=== PATIENT | female | born 1970 | race African-American/Black ===

== ENCOUNTER → 2018-09-06 | Outpatient (CLI) | payer MEDICAID ==
--- NOTE | 2018-09-06 11:46 | XR ---
Bilateral knees HISTORY: Pain in knees and heels 4 views of each knee are submitted on a total of 7 images No comparisons Marginal spurring is present in the medial compartments. Alignment, bone mineralization are maintaine d. No evident joint effusion on the right, there is suprapatellar increased density suggestive of eff usion on the left. Question some mild joint space loss medial compartment also joint space loss prese nt at the patellofemoral joint of the right knee greater than left. Marginal spurring present at the patellofemoral joints. IMPRESSION: Osteoarthritis.
--- NOTE | 2018-09-06 12:19 | XR ---
Bilateral calcaneus HISTORY: Heel pain 2 views of the left and 2 views of the right calcaneus submitted. There are plantar calcaneal spurs bilaterally. Bone mineralization is maintained. There is no fractur e or dislocation. Ossific density present at the level of the right ankle joint, consider synovial os teochondromatosis. IMPRESSION: Plantar calcaneal spurs. Additional findings above.
== END | disposition home or self-care (01) ==
LOC: RADXRMAIN 11:05
PROVIDERS: ATTEND Family Medicine
DX: M17.0 Bilateral primary osteoarthritis of knee (principal); M77.31 Calcaneal spur, right foot; M77.32 Calcaneal spur, left foot

== ENCOUNTER 2019-01-29 06:25 | Emergency (ER) | payer MEDICAID ==
--- NOTE | 2019-01-29 06:51 | ED ---
General Adult HPI - General Source: patient Mode of arrival: ambulatory Limitations: no limitations <RenateFrantzMiguel D - Last Filed: 01/29/19 07:20> <Nando Dorsey - Last Filed: 01/29/19 12:36> - General Chief complaint: ENT Stated complaint: Tongue Swelling Time Seen by Provider: 01/29/19 06:48 - History of Present Illness Initial comments: Dictation was produced using [employer] dictation software. please excuse any grammatical, word or spelling errors. Chief Complaint: 48-year-old female past medical history of hypertension presents with tongue swelling. History of Present Illness: Female. Patient presents with tongue swelling. She states her symptoms began at 1 AM. She came to the emergency department that she felt like the swelling was getting slightly worse. Patient takes amlodipine Benzapril, medication. She states she's been on this medication approximately 2-3 years. Patient denies any symptoms like this in the past. No family history of similar symptoms. Patient denies any allergen exposures. Patient denies any allergens. The ROS documented in this emergency department record has been reviewed and confirmed by me. Those systems with pertinent positive or negative responses have been documented in the HPI. All other systems are other negative and/or noncontributory. PHYSICAL EXAM: General Impression: Alert and oriented x3, not in acute distress HEENT: Normocephalic atraumatic, extra-ocular movements intact, pupils equal and reactive to light bilaterally, mucous membranes moist, tongue swelling, no respiratory distress, patient appears comfortable. No pain to the submandibular space Cardiovascular: Heart regular rate and rhythm, S1&S2 audible, no murmurs, rubs or gallops Chest: Lungs clear to auscultation bilaterally, no rhonchi, no wheeze, no rales Abdomen: Bowel sounds present, abdomen soft, non-tender, non-distended, no organomegaly Musculoskeletal: Pulses present and equal in all extremities, no peripheral edema Motor: Power 5/5 bilaterally, no focal deficits noted Neurological: CN II-XII grossly intact, no focal motor or sensory deficits noted Skin: Intact with no visualized rashes Psych: Normal affect and mood ED course: 48-year-old female presents with these induced angioedema. Patient clinically stable at this time. As upon arrival are within acceptable limits. Patient allegedly has been having symptoms for approximately 6 hours without any airway compromise. Patient appears medically stable at this time. She does have obvious swelling to the tongue. However she is in no acute distress. Given duration of symptoms believe patient is admitted in a cervical condition at this time. We will plan to monitor patient in emergency department for now. Patient signed out to Dr. Dorsey for follow-up of final disposition. (Miguel Dewitt) - Related Data Home Medications Medication Instructions Recorded Confirmed PARoxetine HCL [Paxil] 40 mg PO DAILY 01/29/19 01/29/19 amLODIPine BESYLATE/BENAZEPRIL 1 cap PO DAILY 01/29/19 01/29/19 [Lotrel 10-40 MG] Previous Rx's Medication Instructions Recorded Famotidine [Pepcid] 20 mg PO BID #10 tablet 01/29/19 predniSONE 20 mg PO BID #10 tab 01/29/19 Allergies Allergy/AdvReac Type Severity Reaction Status Date / Time No Known Allergies Allergy Verified 01/29/19 06:39 Review of Systems ROS Other: All systems not noted in ROS Statement are negative. <Miguel Dewitt - Last Filed: 01/29/19 07:20> ROS Other: All systems not noted in ROS Statement are negative. <Nando Dorsey - Last Filed: 01/29/19 12:36> ROS Statement: Those systems with pertinent positive or pertinent negative responses have been documented in the HPI. Past Medical History Past Medical History: Hypertension History of Any Multi-Drug Resistant Organisms: None Reported Past Surgical History: No Surgical Hx Reported Past Psychological History: Anxiety Smoking Status: Never smoker Past Alcohol Use History: None Reported Past Drug Use History: None Reported <Miguel Dewitt - Last Filed: 01/29/19 07:20> General Exam Limitations: no limitations <Miguel Dewitt - Last Filed: 01/29/19 07:20> Course <Nando Dorsey - Last Filed: 01/29/19 12:36> Vital Signs 01/29/19 01/29/19 01/29/19 06:36 06:45 07:23 Temperature 98.3 F Pulse Rate 71 Respiratory 20 15 18 Rate Blood Pressure 139/82 151/96 O2 Sat by Pulse 100 98 Oximetry 01/29/19 01/29/19 09:00 10:00 Temperature Pulse Rate 78 Respiratory 18 16 Rate Blood Pressure O2 Sat by Pulse 99 Oximetry - Reevaluation(s) Reevaluation #1: 01/29/19 08:29 Initial examination the patient upon my arrival reveals she feels improved the rash however she stated that she was having some pain in the back of her throat. She demonstrates no stridor JVD or bruits she still has the angioedema of the tongue. Medication will be ordered (Nando Dorsey) Medical Decision Making <Nando Dorsey - Last Filed: 01/29/19 12:36> - Medical Decision Making I did reevaluate the patient multiple occasions she is feeling improved at this time would like to go home and believe this is reasonable at this time. She will be placed on a short course of steroids histamine blockers she also was informed not to take anymore the Ge inhibitors. She is a follow-up with her doctor return when necessary (Nando Dorsey) Disposition <Miguel Dewitt - Last Filed: 01/29/19 07:20> Is patient prescribed a controlled substance at d/c from ED?: No <Nando Dorsey - Last Filed: 01/29/19 12:36> Clinical Impression: Angioedema due to angiotensin converting enzyme inhibitor (GE-I) Disposition: HOME SELF-CARE Condition: Good Instructions (If sedation given, give patient instructions): Angioedema (ED) Prescriptions: Famotidine [Pepcid] 20 mg PO BID #10 tablet predniSONE 20 mg PO BID #10 tab Referrals: Willian Tomlinson DO [Primary Care Provider] - 1-2 days
[2019-01-29] MEDS ORDERED: methylPREDNISolone SOD SUCCI 125 MG/2 ML VIAL IV STA (08:28)
[2019-01-29] MEDS ORDERED: FAMOTIDINE 20 MG/2 ML VIAL IV STA (08:28)
[2019-01-29] MEDS ORDERED: diphenhydrAMINE 50 MG/ML 1 ML VIAL IVP STA (08:28)
[2019-01-29 12:40] VITALS: BP 148/76; PULSE 79; RESP 18; TEMP 98.1
== END 2019-01-29 12:40 | disposition home or self-care (01) ==
LOC: EC 06:25
DX: T78.3XXA Angioneurotic edema, initial encounter (principal); I10 Essential (primary) hypertension; F41.9 Anxiety disorder, unspecified; Z79.899 Other long term (current) drug therapy
CPT/HCPCS: 99283; 96374; 96375 ×2; J1200; J2930

== ENCOUNTER 2020-10-05 13:57 | Emergency (ER) | payer MEDICAID ==
[2020-10-05 14:21] VITALS: BP 120/75; PULSE 94; RESP 16
[2020-10-05] MEDS ORDERED: ACETAMINOPHEN TAB 500 MG TAB PO STA (14:39)
--- NOTE | 2020-10-05 15:21 | ED ---
Fever HPI - General Chief Complaint: Fever Stated Complaint: Covid symptoms Time Seen by Provider: 10/05/20 14:37 Source: patient Mode of arrival: ambulatory Limitations: no limitations - History of Present Illness Initial Comments: 50-year-old female presenting to emergency Department with a chief complaint of a fever. Patient reports symptoms began 3 days ago after she was exposed to a covid positive patient. Patient also reports generalized fatigue and she has been taking [id number] analgesics with no significant improvement in symptoms. Although, she does report that the fever is well managed. She does report loss of taste but not smoke. Does report a nonproductive cough. She is not a smoker. She denies any chest pain or shortness of breath. Denies any nausea vomiting diarrhea or abdominal pain. Does report chills. Patient is only requesting Covid testing. - Related Data Home Medications Medication Instructions Recorded Confirmed PARoxetine HCL [Paxil] 40 mg PO DAILY 01/29/19 01/29/19 amLODIPine BESYLATE/BENAZEPRIL 1 cap PO DAILY 01/29/19 01/29/19 [Lotrel 10-40 MG] Previous Rx's Medication Instructions Recorded Famotidine [Pepcid] 20 mg PO BID #10 tablet 01/29/19 predniSONE [Deltasone] 20 mg PO BID #10 tab 01/29/19 Allergies Allergy/AdvReac Type Severity Reaction Status Date / Time No Known Allergies Allergy Verified 10/05/20 14:37 Review of Systems ROS Statement: Those systems with pertinent positive or pertinent negative responses have been documented in the HPI. ROS Other: All systems not noted in ROS Statement are negative. Past Medical History Past Medical History: Hypertension History of Any Multi-Drug Resistant Organisms: None Reported Past Surgical History: No Surgical Hx Reported Past Psychological History: Anxiety Past Alcohol Use History: None Reported Past Drug Use History: None Reported General Exam Limitations: no limitations General appearance: alert, in no apparent distress, obese Head exam: Present: atraumatic, normocephalic, normal inspection Eye exam: Present: normal appearance, PERRL, EOMI Pupils: Present: normal accommodation ENT exam: Present: normal exam, normal oropharynx, mucous membranes moist, TM's normal bilaterally, normal external ear exam Neck exam: Present: normal inspection, full ROM. Absent: tenderness Respiratory exam: Present: normal lung sounds bilaterally. Absent: respiratory distress, wheezes, rales, rhonchi, stridor, chest wall tenderness, accessory muscle use, decreased breath sounds, prolonged expiratory Cardiovascular Exam: Present: regular rate, normal rhythm, normal heart sounds GI/Abdominal exam: Present: soft. Absent: distended, tenderness, guarding Extremities exam: Present: normal inspection, full ROM, normal capillary refill, other (+2 ulnar and radial pulses bilateral.). Absent: tenderness, pedal edema, joint swelling, calf tenderness Back exam: Present: normal inspection, full ROM. Absent: tenderness, CVA tenderness (R), CVA tenderness (L) Neurological exam: Present: alert, oriented X3, normal gait Psychiatric exam: Present: normal affect, normal mood Skin exam: Present: warm, dry, intact, normal color Course Vital Signs 10/05/20 10/05/20 14:18 15:48 Temperature 100.6 F H 99.4 F Pulse Rate 94 Respiratory 16 Rate Blood Pressure 120/75 O2 Sat by Pulse 99 Oximetry Medical Decision Making - Medical Decision Making 50-year-old feel presenting to emergency Department with a chief complaint of fever. On physical examination, patient does not appear to be in any respiratory distress. She was febrile on arrival but otherwise stable vitals. Patient was given Tylenol in the ED. Covid test positive. Patient only came to the ED for Covid testing. Patient was offered imaging, she declined. Advised the patient to only take Tylenol as an antipyretic and self isolate for 2 weeks after the onset of symptoms. On reevaluation, her temperature had improved. Strict return parameters were thoroughly discussed with patient is understanding and agreeable. Case discussed with physician. - Lab Data Lab Results 10/05/20 Range/Units 14:50 Coronavirus (PCR) Detected A (Not Detectd) Disposition Clinical Impression: COVID-19, Fever Disposition: HOME SELF-CARE Condition: Stable Instructions (If sedation given, give patient instructions): Upper Respiratory Infection (DC) Additional Instructions: Self isolate until he received the results of the covid testing. Take Tylenol if he develop a fever. Is patient prescribed a controlled substance at d/c from ED?: No Referrals: Willian Tomlinson DO [Primary Care Provider] - 1-2 days Time of Disposition: 15:21
[2020-10-05 15:50] VITALS: TEMP 99.4
== END 2020-10-05 15:48 | disposition home or self-care (01) ==
LOC: EC 13:57
DX: U07.1 COVID-19 (principal); I10 Essential (primary) hypertension; F41.9 Anxiety disorder, unspecified; Z79.899 Other long term (current) drug therapy
CPT/HCPCS: 87635; 99283

== ENCOUNTER → 2021-06-25 | Outpatient (CLI) | payer MEDICAID ==
--- NOTE | 2021-06-25 15:31 | MR ---
EXAMINATION TYPE: MR knee LT wo con DATE OF EXAM: 06/25/2021 COMPARISON: Outside bilateral knee x-rays June 11, 2021 HISTORY: L knee outer pain and swelling for 3 years per patient TECHNIQUE: Multiplanar, multisequence imaging of the left knee is performed without IV contrast. FINDINGS: MEDIAL MENISCUS: Anterior horn is intact without tear. Posterior horn is truncated appearance with ob lique and irregular increased signal extends to inferior articular surface. LATERAL MENISCUS: Anterior and posterior horns are intact without tear. CRUCIATE LIGAMENTS: The anterior and posterior cruciate ligaments are intact and unremarkable. COLLATERAL LIGAMENTS: The medial collateral ligament and lateral collateral ligament complex are inta ct and unremarkable. EXTENSOR MECHANISM: Visualized quadriceps and patellar tendons are intact. EFFUSION: Small suprapatellar joint effusion. POPLITEAL CYST: No popliteal/hopper cyst. TRICOMPARTMENT SPACES: Moderate patellofemoral compartment narrowing with mild to moderate spurring. Mild narrowing and spurring medial and lateral tibiofemoral compartments. CARTILAGE: Significant chondromalacia patella with areas of full-thickness cartilaginous loss identif ied. BONE MARROW SIGNAL: There is some heterogeneous increased T2 signal throughout the posterior and deep er aspects of the upper patella. OTHER: No additional significant abnormality is appreciated. IMPRESSION: 1. Full-thickness tear posterior horn of medial meniscus. 2. Tricompartment degenerative changes with moderate to borderline severe patellofemoral joint arthro adriano noted as detailed above. 3. Small suprapatellar joint effusion.
== END | disposition home or self-care (01) ==
LOC: RADMRIMAIN 12:58
PROVIDERS: ATTEND Orthopaedic Surgery
DX: M23.322 Other meniscus derangements, posterior horn of medial meniscus, left knee (principal); M17.12 Unilateral primary osteoarthritis, left knee

== ENCOUNTER → 2021-07-24 | Outpatient (CLI) | payer MEDICAID ==
[2021-07-24 15:09] LABS: Basophils # (A) 0.1 k/uL (0-0.2); Basophils % (A) 1 %; Eosinophils # (A) 0.3 k/uL (0-0.7); Eosinophils % (A) 4 %; HCT 37.1 % (34.0-46.0); HGB 12.4 gm/dL (11.4-16.0); Lymphocytes # (A) 2.4 k/uL (1.0-4.8); Lymphocytes % (A) 31 %; MCH 30.8 pg (25.0-35.0); MCHC 33.4 g/dL (31.0-37.0); MCV 92.1 fL (80.0-100.0); Mean Platelet Volume 7.2; Monocytes # (A) 0.4 k/uL (0-1.0); Monocytes % (A) 5 %; Neutrophils # (A) 4.4 k/uL (1.3-7.7); Neutrophils % (A) 57 %; Platelet Count 273 k/uL (150-450); RBC 4.03 m/uL (3.80-5.40); RDW 13.6 % (11.5-15.5); WBC 7.6 k/uL (3.8-10.6)
[2021-07-24 15:12] LABS: Potassium 3.5 mmol/L (3.5-5.1)
== END | disposition home or self-care (01) ==
LOC: LABPAT 14:17
PROVIDERS: ATTEND Orthopaedic Surgery
DX: Z01.812 Encounter for preprocedural laboratory examination (principal); M23.92 Unspecified internal derangement of left knee
CPT/HCPCS: 80051; 85025

== ENCOUNTER 2021-08-08 09:51 | Day surgery (SDC) | payer MEDICAID ==
[2021-08-05 17:27] VITALS: BMI 39.1
--- NOTE | 2021-08-07 19:28 | HP ---
HISTORY AND PHYSICAL REASON FOR ADMISSION: Surgery scheduled for 08/08/2021 HISTORY OF PRESENT ILLNESS: Lalita Hurst is a 51-year-old patient seen with progressive left knee pain. We discussed options. She elected to proceed with arthroscopy. Consent was obtained. PAST MEDICAL HISTORY: Hypertension. Anxiety. PAST SURGICAL HISTORY: Noncontributory. MEDICATIONS: Paxil, amlodipine, furosemide. ALLERGIES: None. SOCIAL HISTORY: She denies tobacco use. PHYSICAL EVALUATION OF THE LEFT KNEE: Range of motion is -2/3-115. Mild effusion. Tenderness medial joint line. Positive medial Madalyn's. Positive lateral Madalyn's. Patellar crepitus with range of motion. Ligaments stable. Hip rotation without pain. Distal neurovascular exam intact. RADIOGRAPHS: Left knee radiographs revealed osteoarthritic changes. An MRI of the left knee revealed medial meniscal tear and osteoarthritic changes. IMPRESSION: 1. Internal derangement of left knee with medial meniscal tear. 2. Hypertension. PLAN: Left knee arthroscopy with partial meniscectomy and debridement. Surgery 08/08/2021. MMODL / IJN: [id number] /
[~2021-08-08 09:51] MED LIST: DEXAMETHASONE SOD PHOSPHATE 4 MG/ML 1 ML VIAL IV ONE; LACTATED RINGERS 1,000 ML IV SCH; ONDANSETRON 4 MG/2 ML VIAL IVP ONE
[2021-08-08] MEDS ORDERED: LIDOCAINE 1% INJ 10MG/ML (20 ML MDV) ONE (12:15)
[2021-08-08] MEDS ORDERED: fentaNYL (PF) 50 MCG/ML 2 ML AMP ONE (12:15)
[2021-08-08] MEDS ORDERED: PROPOFOL 10 MG/ML 20 ML VIAL IV ONE (12:15)
[2021-08-08] MEDS ORDERED: KETOROLAC 15 MG/ML 1 ML VIAL ONE (12:15)
[2021-08-08] MEDS ORDERED: MIDAZOLAM 2 MG/2 ML VIAL ONE (12:15)
[2021-08-08] MEDS ORDERED: BUPIVACAINE (PF) 0.25% 30 ML VIAL INTRAARTIC ONE (12:43)
--- NOTE | 2021-08-08 12:58 | P.OP ---
Date of Procedure: 08/08/21 Preoperative Diagnosis: Internal derangement left knee Postoperative Diagnosis: 1. Tear medial meniscus left knee 2. Reactive synovitis medial, lateral and suprapatellar compartments left knee Procedure(s) Performed: 1. Arthroscopic partial medial meniscectomy left knee 2. Arthroscopic partial synovectomy medial, lateral and suprapatellar compartments left knee Anesthesia: DIPESH, local Surgeon: Jose Castillo Estimated Blood Loss (ml): 7 Pathology: none sent Condition: stable Disposition: PACU Indications for Procedure: 51-year-old patient seen with progressive left knee pain. After treatment options were discussed, she elected to proceed with arthroscopy. Operative Findings: see description of procedure Description of Procedure: Patient was taken to the operative suite. Patient underwent a general anesthet ic by the department of anesthesia. Patient was given preoperative antibiotics. The left lower extremity was placed in a well-padded arthroscopic leg gandara. The left leg was prepped and draped in the normal sterile orthopedic fashion. A lateral parapatellar and suprapatellar incision was made. Trochars were inserted. Arthroscopy was initiated. Suprapatellar pouch revealed diffuse thick reactive synovitis. The patellofemoral joint appeared to articulate congruently. There were grade 1 chondromalacia changes of the patella. The scope was guided into the medial gutter. No loose bodies or plica were identified. The scope was then guided into the medial compartment. A medial parapatellar incision was made. Trocar inserted followed by probe. There was a tear involving the posterior horn of the medial meniscus. There was no significant chondromalacia involving the medial compartment. There was some thick reactive synovitis anteriorly. I performed a partial medial meniscectomy getting down to stable meniscal tissue. I performed a partial synovectomy decompressing thick reactive synovitis anteriorly. The shaver was now removed. The residual meniscus was probed and found to be stable. There was good decompression of the synovitis. Scope and probe were then guided into the intercondylar notch. Cruciates were identified, probed and found to be stable. The scope and probe were then guided into lateral compartment. The lateral meniscus was probed and found be stable. There was no significant chondromalacia involving the lateral compartment. There was some reactive synovitis anteriorly. I now introduced a motorized shaver and performed a partial synovectomy. The shaver was now removed. There was good decompression of the synovitis. The scope was in guided back into the suprapatellar compartment. I introduced a motorized shaver into the suprapatellar compartment. I debrided some piecemeal fragments of meniscus I encountered. I performed a partial synovectomy. The shaver was now removed. There was good decompression of the synovitis. I took more look around the entire knee, no residual debris. Instruments were now removed from the joint. The joint was infiltrated with .25% Marcaine. Steri-Strips were applied to the portal sites. Sterile dressings were applied. The patient was placed into a CECILY hose. No tourniquet was utilized. The patient was awakened, transferred to a bed and taken to recovery stable satisfactory condition.
[2021-08-08 13:02] VITALS: TEMP 97.2
[2021-08-08] MEDS: HYDROmorphone 0.5 MG/0.5 ML SYRINGE IVP PRN ×2 (13:06→13:14)
[2021-08-08 13:55] VITALS: RESP 20
[2021-08-08 15:15] VITALS: BP 118/70; PULSE 70
== END 2021-08-08 15:20 | disposition home or self-care (01) ==
LOC: OR 09:51
PROVIDERS: ATTEND Orthopaedic Surgery
DX: M23.204 Derangement of unspecified medial meniscus due to old tear or injury, left knee (principal); M17.12 Unilateral primary osteoarthritis, left knee; M65.862 Other synovitis and tenosynovitis, left lower leg; K21.9 Gastro-esophageal reflux disease without esophagitis; I10 Essential (primary) hypertension; F41.9 Anxiety disorder, unspecified; Z79.899 Other long term (current) drug therapy
CPT/HCPCS: 29881; 29876; 81025; J2250; J1100; J0690; J2405; J2001; J3010; J1885; J2704; J1170

== ENCOUNTER → 2021-12-30 | Outpatient (CLI) | payer MEDICAID ==
--- NOTE | 2021-12-31 03:19 | MR ---
EXAMINATION TYPE: MR knee LT wo con DATE OF EXAM: 12/30/2021 COMPARISON: None HISTORY: Left knee pain. Surgery 2019. FINDINGS: Multiplanar multi echo imaging of the left knee without contrast. There is moderate size knee joint effusion. The anterior and posterior cruciate ligaments are intact. There is moderate thinning and increased signal in the posterior horn of the medial meniscus. There is narrowing of the medial joint space. There is increased signal in the medial femoral condyle on th e medial aspect. The collateral ligaments are intact. There is no evidence of a fracture. IMPRESSION: Large knee joint effusion. No evidence of ligamentous tear. There is edema in the medial aspect media l femoral condyle consistent with a bone bruise. Moderate osteoarthritis medial joint space with join t space narrowing and significant complex tear of the posterior horn medial meniscus.
== END | disposition home or self-care (01) ==
LOC: RADMRIMAIN 19:55
PROVIDERS: ATTEND Orthopaedic Surgery
DX: M17.12 Unilateral primary osteoarthritis, left knee (principal); M25.462 Effusion, left knee; M25.862 Other specified joint disorders, left knee; M23.322 Other meniscus derangements, posterior horn of medial meniscus, left knee

== ENCOUNTER 2022-03-06 08:50 | Day surgery (SDC) | payer MEDICAID ==
[2022-03-05 08:32] VITALS: BMI 38.0
--- NOTE | 2022-03-05 19:03 | HP ---
HISTORY AND PHYSICAL REASON FOR ADMISSION: Surgery scheduled for 03/06/2022 HISTORY OF PRESENT ILLNESS: Lalita Hurst is a 51-year-old patient seen with progressive left knee pain. We discussed options for treatment. She elected to proceed with left knee arthroscopy. Consent was obtained. PAST MEDICAL HISTORY: Hypertension, asthma. PAST SURGICAL HISTORY: Noncontributory. DAILY MEDICATIONS: Amlodipine, Motrin, Paxil. ALLERGIES: None reported. SOCIAL HISTORY: She denies current tobacco use. PHYSICAL EVALUATION OF THE LEFT KNEE: Range of motion is -2/3-120. She has a mild effusion. Tenderness along the medial joint line. Positive medial Madalyn's. Ligaments stable. Hip rotation without pain. Distal neurovascular exam intact. RADIOGRAPHS: Radiographs of the left knee revealed mild osteoarthritic changes. MRI of the left knee revealed a complex medial meniscal tear and a large intra-articular effusion. IMPRESSION: 1. Internal derangement of left knee with medial meniscal tear. 2. Hypertension. PLAN: Left knee arthroscopy with partial medial meniscectomy and debridement. Surgery is scheduled for 03/06/2022. MMODL / IJN: [id number] /
[~2022-03-06 08:50] MED LIST changes: +HYDROmorphone 0.5 MG/0.5 ML SYRINGE IVP PRN; +LIDOCAINE 1% (10MG/ML) FOR IV START INTRADERMA PRN; +SCOPOLAMINE 1 MG/72 HR PATCH TRANSDERM ONE
[2022-03-06 09:27] VITALS: RESP 16
[2022-03-06] MEDS ORDERED: HYDROmorphone (PF) 1 MG/ML ONE (10:05)
[2022-03-06] MEDS ORDERED: fentaNYL (PF) 50 MCG/ML 2 ML AMP ONE (10:05)
[2022-03-06] MEDS ORDERED: ePHEDrine 50 MG/ML 1 ML VIAL ONE (10:05)
[2022-03-06] MEDS ORDERED: LIDOCAINE 1% INJ 10MG/ML (20 ML MDV) ONE (10:05)
[2022-03-06] MEDS ORDERED: SUCCINYLCHOLINE CHLORIDE 100 MG/5 ML SYR IV ONE (10:05)
[2022-03-06] MEDS ORDERED: PROPOFOL 10 MG/ML 20 ML VIAL IV ONE (10:05)
[2022-03-06] MEDS ORDERED: MIDAZOLAM 2 MG/2 ML VIAL ONE (10:05)
[2022-03-06] MEDS ORDERED: BUPIVACAINE (PF) 0.25% 30 ML VIAL INTRAARTIC ONE ×2 (10:27→10:47)
--- NOTE | 2022-03-06 11:00 | P.OP ---
Date of Procedure: 03/06/22 Preoperative Diagnosis: Internal derangement left knee Postoperative Diagnosis: 1. Complex tear posterior horn medial meniscus left knee 2. Grade 4 chondromalacia medial femoral condyle left knee 3. Reactive synovitis medial, lateral and suprapatellar compartments left knee Procedure(s) Performed: 1. Arthroscopic partial medial meniscectomy left knee 2. Arthroscopic microfracture medial femoral condyle left knee 3. Arthroscopic partial synovectomy medial, lateral and suprapatellar compartments left knee Anesthesia: GETA, local Surgeon: Jose Castillo Estimated Blood Loss (ml): 8 Pathology: none sent Condition: stable Disposition: PACU Indications for Procedure: 51-year-old patient seen with progressive left knee pain. After having treatment options discussed, she elected to proceed with arthroscopy. Operative Findings: See description of procedure Description of Procedure: Patient was taken to the operative suite. Patient underwent a general anesthetic by the department of anesthesia. Patient was given preoperative antibiotics. The left lower extremity was placed in a well-padded arthroscopic leg gandara. The left leg was prepped and draped in the normal sterile orthopedic fashion. A lateral parapatellar and suprapatellar incision was made. Trochars were inserted. Arthroscopy was initiated. Suprapatellar pouch revealed diffuse thick reactive synovitis. The patellofemoral joint appeared to articulate congruently. There was grade 2/3 chondromalacia of the patella with no osteochondral tears present.. The scope was guided into the medial gutter. No loose bodies or plica were identified. The scope was then guided into the medial compartment. A medial parapatellar incision was made. Trocar inserted followed by probe. Was a complex tear involving the posterior horn of the medi al meniscus. There were some grade 4 chondromalacia changes of the medial femoral condyle present with some exposed bone along the weightbearing surface area. There was some thick reactive synovitis anteriorly. I performed a partial medial meniscectomy getting down to stable meniscal tissue. I performed a chondroplasty of the medial femoral condyle. I performed a partial synovectomy decompressing the reactive synovitis anteriorly. I introduced a microfracture awl. I performed a microfracture of the medial femoral condyle penetrating the bone with resultant bleeding at the microfracture site. The residual osteochondral surface appeared stable. Scope and probe were then guided into the intercondylar notch. Cruciates were identified, probed and found to be stable. The scope and probe were then guided into lateral compartment. Lateral meniscus was found to be stable. There were some grade 1/2 chondromalacia changes of the tibial plateau without significant osteochondral tears being present. There was some thick reactive synovitis anteriorly. I performed a partial synovectomy decompressing the reactive synovitis along the anterior aspect of the lateral compartment. Shaver was removed. There was good decompression of the synovitis. The scope was in guided back into the suprapatellar compartment. I introduced a motorized shaver into the super patellar compartment. I debrided some piecemeal fragments of meniscus that I encountered. I performed a partial synovectomy. Shaver was removed. There was good decompression of the synovitis. I took one more look around the entire knee, no residual debris. Instruments were now removed from the joint. The joint was infiltrated with .25% Marcaine. Steri-Strips were applied to the portal sites. Sterile dressings were applied. The patient was placed into a CECILY hose. No tourniquet was utilized. The patient was awakened, transferred to a bed and taken to recovery stable satisfactory condition.
[2022-03-06 11:05] VITALS: TEMP 97.2
[2022-03-06] MEDS ORDERED: LACTATED RINGERS 1,000 ML IV ONE (11:47)
[2022-03-06] MEDS ORDERED: ALBUTEROL NEBULIZED 1.25 MG/3 ML INHALATION ONE (12:10)
[2022-03-06] MEDS ORDERED: ALBUTEROL NEBULIZED 2.5 MG/3 ML INHALATION ONE (12:10)
[2022-03-06 13:02] VITALS: PULSE 70
[2022-03-06 13:03] VITALS: BP 114/69
== END 2022-03-06 13:05 | disposition home or self-care (01) ==
LOC: OR 08:50
PROVIDERS: ATTEND Orthopaedic Surgery
DX: M23.92 Unspecified internal derangement of left knee (principal); S83.232A Complex tear of medial meniscus, current injury, left knee, initial encounter; M22.42 Chondromalacia patellae, left knee; M65.862 Other synovitis and tenosynovitis, left lower leg; I10 Essential (primary) hypertension; J45.909 Unspecified asthma, uncomplicated; Z79.899 Other long term (current) drug therapy
CPT/HCPCS: 29881; 29876; 29879; 81025; J2250; J1100; J0690; J2405; J2001; J3010; J1170 ×2; J0330; J2704

== ENCOUNTER → 2023-04-29 | Outpatient (CLI) | payer MEDICAID ==
--- NOTE | 2023-04-29 10:22 | BD ---
EXAMINATION TYPE: Axial Bone Density DATE OF EXAM: 04/29/2023 CLINICAL HISTORY: 53 years old Female. ICD-10 CODE: Z78.0ASYMPTOMATIC MENOPAUSAL STATE Height: 65.5 in Weight: 226 lbs RISK FACTORS HISTORY OF: Active: yes Diet low in dairy products/other sources of calcium: yes Postmenopausal woman: age 52 Take estrogen and/or progesterone medications: not now How long: pt took control for 20 years MEDICATIONS: Additional Medications: metformin, anxiety med, blood pressure med, stomach meds, furosemide, amlodip ine, omeprazole EXAM MEASUREMENTS: Bone mineral densitometry was performed using the [employer]. Bone mineral density as measured about the Lumbar spine is: ----- L1-L4(G/cm2): 1.220 T Score Values are as follows: ----- L1: -0.1 ----- L2: 0.0 ----- L3: 1.2 ----- L4: 0.1 ----- L1-L4: 0.3 Z Score Values are as follows: ----- L1: -1.5 ----- L2: -1.4 ----- L3: -0.2 ----- L4: -1.3 ----- L1-L4: -1.0 Bone mineral density baseline Bone mineral density about the R hip (g/cm2): 1.028 Bone mineral density about the L hip (g/cm2): 0.982 T Score values are as follows: -----R Neck: -0.6 -----L Neck: -1.1 -----R Total: 0.2 -----L Total: -0.2 Z Score values are as follows: -----R Neck: -1.4 -----L Neck: -1.9 -----R Total: -1.1 -----L Total: -1.5 Bone mineral density baseline FRAX%s: The graph provided illustrates a 1.8% chance for a major osteoporotic fx and a 0.1% chance fo r the hips probability for fx in 10 years time. IMPRESSION: Osteopenia (T Score between -2.5 and -1). There is slightly increased risk of fracture and the patient may be considered for treatment. Re-Screen 2-5 years. NOTE: T-SCORE=SD OF THE YOUNG ADULT MEAN.
--- NOTE | 2023-04-30 19:58 | MM ---
Reason for Exam: Screening (asymptomatic). Patient History: Menarche at age 14. Patient has no children. Postmenopausal. Patient used Hormonal Contraceptives for 20 years. Maternal grandmother had breast cancer at or over age 50. Risk Values: Stacy 5 year model risk: 1.2%. NCI Lifetime model risk: 8.5%. Prior Study Comparison: No prior studies available for comparison. Tissue Density: There are scattered fibroglandular densities. Findings: Analyzed By CAD. No significant mass, suspicious microcalcification, or other discrete abnormality is seen. Overall Assessment: Negative, BI-RAD 1 Management: Screening Mammogram of both breasts in 1 year. . Patient should continue monthly self-breast exams. A clinical breast exam by your physician is recommended on an annual basis. This exam should not preclude additional follow-up of suspicious palpable abnormalities. Note on Stacy scores and lifetime risk: 1. A Stacy score greater than 3% is considered moderate risk. If this is the case, consider specialist referral to assess eligibility for a risk reducing agent. 2. If overall lifetime risk for the development of breast cancer is 20% or higher, the patient may qualify for future screening with alternating mammogram and breast MRI. Electronically signed and approved by: Celestine Gallegos M.D. Radiologist
== END | disposition home or self-care (01) ==
LOC: RADMAMWWP 08:25
PROVIDERS: ATTEND Family Medicine
DX: Z12.31 Encounter for screening mammogram for malignant neoplasm of breast (principal); Z78.0 Asymptomatic menopausal state; Z80.3 Family history of malignant neoplasm of breast
CPT/HCPCS: 77067; 77080